=== PATIENT | female | born 1980 | race Caucasian/White ===

== ENCOUNTER → 2016-07-31 | Outpatient (CLI) | payer BC ==
[~2016-07-31] MED LIST: CETI10TA84 PO; INDSR160 PO; MTR600X PO; PREN1TAB29; SYN75
--- NOTE | 2016-07-31 11:15 | DIAGNOSTIC IMAGING REPORT ---
FUSION CT SINUSES W/O HISTORY: Chronic sinusitis. 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 Fusion CT sinus protocol was also obtained. COMPARISON STUDY: None. FINDINGS: The frontal sinuses, ethmoid air cells, sphenoid sinuses, and maxillary sinuses are clear. The mastoid air cells are clear. No fluid levels within the paranasal sinuses. Mild right anterior nasal septal deviation. The bilateral ostiomeatal units are patent. The lamina papyracea and orbital floors are intact. The right anterior clinoid is pneumatized. There is a brain parenchyma and orbits are unremarkable. IMPRESSION: The paranasal sinuses and mastoid air cells are clear. Mild right anterior nasal septal deviation. Electronically signed by: Roberto Carlos Johnson M.D. 07/31/2016 11:13 AM Dictated Date/Time: 07/31/2016 11:08 AM
== END | disposition home or self-care (01) ==
LOC: C.CTS 10:54
DX: J34.3 Hypertrophy of nasal turbinates (principal)

== ENCOUNTER → 2017-05-08 | Outpatient (CLI) | payer OTHER | END | disposition home or self-care (01) | LOC: C.PAPS 09:05 | PROVIDERS: ATTEND Obstetrics & Gynecology | DX: Z12.4 Encounter for screening for malignant neoplasm of cervix (principal) ==